=== PATIENT | female | born 1950 | race Hispanic/Latino ===

== ENCOUNTER 2016-05-25 13:18 | Outpatient (CLI) | payer OTHER ==
--- NOTE | 2016-05-25 14:18 | Mammography Report ---
BILATERAL DIGITAL DIAGNOSTIC MAMMOGRAM with CAD: 05/25/16 13:18:00 CLINICAL: Vague bilateral breast pain and lumps. She could not point to a specific lump. COMPARISON:01/06/15 FINDINGS: The breasts are almost entirely fatty.No mass, architectural distortion or suspicious calcifications. IMPRESSION: Normal mammogram. BI-RADS CATEGORY: 1 - - Negative RECOMMENDATION: Clinical followup and routine mammographic screening in one year. ACR BI-RADS MAMMOGRAPHIC CODES: 0 = Needs additional imaging evaluation; 1 = Negative; 2 = Benign; 3 = Probably benign; 4 = Suspicious; 5 = Malignant; 6 = Known biopsy-proven malignancy COMMENT: 1. Dense breast tissue, i.e., adenosis, fibrocystic changes, etc., may obscure an underlying neoplasm. 2. Approximately 10% of cancers are not detected with mammography. 3. A negative mammography report should not delay biopsy if a clinically suspicious mass is present. COMMENT: Patient follow-up letters are generated by our [employer] application.
== END 2016-05-25 13:19 | disposition home or self-care (01) ==
LOC: SPVWC 13:18
PROVIDERS: ATTEND Obstetrics & Gynecology
DX: N63 Unspecified lump in breast (principal); N64.4 Mastodynia
CPT/HCPCS: 77066; G0204

== ENCOUNTER 2017-09-13 16:00 | Outpatient (CLI) | payer MEDICARE ==
--- NOTE | 2017-09-13 16:35 | Mammography Report ---
BILATERAL DIGITAL SCREENING MAMMOGRAM with CAD: 09/13/17 16:00:00 CLINICAL: Routine screening. COMPARISON:05/25/16 FINDINGS: The breasts are mostly fatty. No mass, architectural distortion or suspicious calcifications. IMPRESSION: No mammographic evidence of malignancy. BI-RADS CATEGORY: 1 - - Negative RECOMMENDATION: Routine mammographic screening in one year. COMMENT: Patient follow-up letters are generated by our [employer] application.
== END 2017-09-13 16:01 | disposition home or self-care (01) ==
LOC: SPVWC 16:00
PROVIDERS: ATTEND Obstetrics & Gynecology
DX: Z12.31 Encounter for screening mammogram for malignant neoplasm of breast (principal)
CPT/HCPCS: 77067

== ENCOUNTER 2019-10-01 15:40 | Outpatient (CLI) | payer MEDICARE ==
--- NOTE | 2019-10-02 09:10 | Mammography Report ---
DIGITAL SCREENING MAMMOGRAM WITH CAD, 10/01/2019 INDICATION: Routine screening mammography. TECHNIQUE: Digital bilateral 2D mammography was obtained in the craniocaudal and mediolateral obliq ue projections. This examination was interpreted with the benefit of Computer-Aided Detection analysi s. COMPARISON: 01/06/2015. FINDINGS: Breast Density: The breasts are almost entirely fatty. There is no evidence of dominant mass, suspicious calcifications or architectural distortion in eithe r breast. IMPRESSION: Follow up recommendation: Routine yearly BI-RADS Category 1: Negative. A "normal" or negative report should not discourage follow up or biopsy of a clinically significant f inding. A written summary of these findings will be mailed to the patient. The patient will be entered into a mammography reporting system which will generate a reminder letter for the patient's next appointmen t at the appropriate interval. The [employer] recommends yearly mammograms starting at age 40 and continuing as l jose as a woman is in good health. Breast MRI is recommended for women with an approximate 20-25% or greater lifetime risk of breast cancer, including women with a strong family history of breast or ova yoon cancer or who have been treated for Hodgkin's disease. Signer Name: Gregorio Turner MD Signed: 10/02/2019 9:06 AM Workstation Name: [email or web address]
== END 2019-10-01 15:41 | disposition home or self-care (01) ==
LOC: SPVWC 15:40
PROVIDERS: ATTEND Obstetrics & Gynecology
DX: Z12.31 Encounter for screening mammogram for malignant neoplasm of breast (principal)
CPT/HCPCS: 77067

== ENCOUNTER 2020-04-01 11:15 | Outpatient (CLI) | payer MEDICARE ==
--- NOTE | 2020-04-01 13:43 | Mammography Report ---
DEXA BONE DENSITY SCAN INDICATION: POSTMENOPAUSAL STATE. COMPARISON: None available. LUMBAR SPINE (L1-L4): Bone mineral density (BMD) is 1.094 g/cm2. T-score is 0.4 (standard deviations of Young Adult mean). Z-score is 2.4 (standard deviations of Age Matched mean). IMPRESSION: 1. WHO Classification: Normal bone density. Fracture Risk: Not Increased. Please note that only the l umbar spine was evaluated. Signer Name: Hank Christianson MD Signed: 04/01/2020 1:38 PM Workstation Name: [id number]
== END 2020-04-01 11:16 | disposition home or self-care (01) ==
LOC: SPVWC 11:15
PROVIDERS: ATTEND Internal Medicine
DX: Z13.820 Encounter for screening for osteoporosis (principal); Z78.0 Asymptomatic menopausal state
CPT/HCPCS: 77080

== ENCOUNTER 2021-02-03 15:25 | Outpatient (CLI) | payer MEDICARE | END 2021-02-03 15:26 | disposition home or self-care (01) | LOC: SPVWC 15:25 | PROVIDERS: ATTEND Obstetrics & Gynecology | DX: Z12.31 Encounter for screening mammogram for malignant neoplasm of breast (principal) | CPT/HCPCS: 77067 ==